=== PATIENT | male | born 1950 ===

== ENCOUNTER 2017-10-15 09:43 | Day surgery (SDC) | payer MEDICARE ==
[2016-01-04 09:28] VITALS: BMI 25.8
[2017-10-15] MEDS ORDERED: cefTRIAXone (Rocephin) 1 gm Inj ONE (10:56)
[2017-10-15] MEDS ORDERED: Lactated Ringer's 1,000 ML IV ONE (12:45)
[2017-10-15] MEDS ORDERED: HYDROmorphone 0.5 mg/0.5 ml ISec IVP PRN (13:16)
[2017-10-15] MEDS ORDERED: Lactated Ringer's 1,000 ML IV SCH (13:30)
[2017-10-15 13:52] VITALS: RESP 18; O2SAT 97
[2017-10-15 14:38] VITALS: BP 136/86; PULSE 59; TEMP 97.7
== END 2017-10-15 15:20 | disposition home or self-care (01) ==
LOC: H.OPSURG 09:43
PROVIDERS: ATTEND Urology
DX: R31.0 Gross hematuria (principal)
CPT/HCPCS: 53899; J0696; J7120